=== PATIENT | female | born 1990 | race Caucasian/White ===

== ENCOUNTER 2016-08-23 22:25 | Emergency (ER) | payer OTHER ==
[~2016-08-23] VITALS: Ht 167.6 cm; Wt 63.5 kg
--- NOTE | 2016-08-23 22:30 | NUR ---
PATIENT WALKED INTO ER C/O EXTREMITIES NUMBNESS X 1WEEK. NOW RADIATING TO UPERR BACK AND CHEST X1 DAY, PT IS ALERT, ORIENTED X 4, NO RESP DISTRESS NOTED OR REPORTED UPON ASSESSMENT..MD AT BEDSIDE..
--- NOTE | 2016-08-23 22:55 | NUR ---
Patient discharged to home in stable conditon. Written and verbal after care instructions given. Patient verbalizes understanding of instructions. pt walked out of ER unassisted with belongings at side..
== END 2016-08-23 23:06 | disposition home or self-care (01) ==
LOC: ER 22:25
DX: G35 Multiple sclerosis (principal)
CPT/HCPCS: A4663